=== PATIENT | male | born 1935 | race Caucasian/White ===

== ENCOUNTER 2017-12-14 19:48 | Emergency (ER) | payer MEDICARE ==
[~2017-12-14] VITALS: Ht 185.4 cm; Wt 101.0 kg
[2017-12-14] MEDS ORDERED: normal saline 1000ML IV soln IVB ONE (20:20)
[2017-12-14] MEDS ORDERED: ondansetron/PF 4mg/2ml inj IV ONE (20:20)
[2017-12-14 20:50] LABS: BASOPHILS # (AUTO) 0.1 X10'3 (0-0.2); BASOPHILS % (AUTO) 0.8 % (0-1); EOSINOPHILS # (AUTO) 0.2 X10'3 (0-0.9); EOSINOPHILS % (AUTO) 2.4 % (0-6); HEMATOCRIT 35.6 % (35.0-45.0); HEMOGLOBIN 12.2 g/dl (12.0-16.0); LYMPHOCYTES # (AUTO) 0.6 X10'3 (1.1-4.8); LYMPHOCYTES % (AUTO) 5.7 % (21-51); MEAN CORPUSCULAR HEMOGLOBIN 31.8 PG (27.0-31.0); MEAN CORPUSCULAR HGB CONC 34.3 % (33.0-36.5); MEAN CORPUSCULAR VOLUME 92.6 FL (78-98); MONOCYTES # (AUTO) 0.4 X10'3 (0-0.9); MONOCYTES % (AUTO) 4.5 % (2-12); NEUTROPHILS # (AUTO) 8.6 X10'3 (1.8-7.7); NEUTROPHILS % (AUTO) 86.6 % (42-75); PLATELET COUNT 122 X10'3 (140-440); RED BLOOD COUNT 3.84 X10'6 (4.20-5.60); RED CELL DISTRIBUTION WIDTH 13.4 % (11.5-14.5); WHITE BLOOD COUNT 9.9 X10'3 (4.5-11.0)
[2017-12-14] MEDS ORDERED: ondansetron 4mg rapidly disintigrating tab PO ONE (20:50)
[2017-12-14 21:03] LABS: ALANINE AMINOTRANSFERASE 75 U/L (12-78); ALBUMIN 3.4 G/DL (3.4-5.0); ALBUMIN/GLOBULIN RATIO 1.1 (1.1-1.5); ALKALINE PHOSPHATASE 112 IU/L (46-116); ANION GAP 8 (8-16); ASPARTATE AMINO TRANSFERASE 39 U/L (10-37); BILIRUBIN,TOTAL 2.6 MG/DL (0.1-1.0); BLOOD UREA NITROGEN 24 MG/DL (7-18); CALCIUM 8.2 MG/DL (8.5-10.1); CHLORIDE 96 MMOL/L (99-107); GLUCOSE 123 MG/DL (70-104); POTASSIUM 3.5 MMOL/L (3.5-5.1); SODIUM 129 MMOL/L (135-145); TOTAL CARBON DIOXIDE 25.2 MMOL/L (24-32); TOTAL PROTEIN 6.4 G/DL (6.4-8.2); eGFR 33 ML/MIN
[2017-12-14] MEDS ORDERED: levoFLOXACIN 250mg tablet PO ONE (21:15)
[2017-12-14] MEDS ORDERED: oseltamivir phos 75mg capsule PO ONE (21:15)
[2017-12-14] MEDS ORDERED: DOXY100C43 PO (21:15)
[2017-12-14] MEDS ORDERED: TAM75C PO (21:15)
[2017-12-14 21:45] LABS: TOTAL CELLS COUNTED 100
[2017-12-14 21:46] LABS: PLATELET ESTIMATE DECREASED
[2017-12-14 21:47] LABS: TOXIC VACUOLATION 1+
[2017-12-14] MEDS ORDERED: CefTRIAXone 2gm/D5W 50ml 50 ML IV ONE (22:05)
[2017-12-14] MEDS ORDERED: azithromycin/NS 500mg/250ml 250 ML IV ONE (22:10)
[2017-12-15] MEDS ORDERED: ondansetron 4mg rapidly disintigrating tab PO ONE (00:25)
[2017-12-15] MEDS ORDERED: ONDA4TAB9 PO (01:24)
[2017-12-15 01:28] VITALS: BP 94/58
[2017-12-16] MEDS ORDERED: SYN0.088T PO (12:03)
== END 2017-12-15 01:35 | disposition home or self-care (01) ==
LOC: EDSEX 19:49 → ER 19:49
DX: J18.9 Pneumonia, unspecified organism (principal); E86.0 Dehydration; N28.9 Disorder of kidney and ureter, unspecified; E03.9 Hypothyroidism, unspecified; Z79.899 Other long term (current) drug therapy
CPT/HCPCS: 36415; 71046; 80053; 83605; 84145; 85025; 87040; 87502; 87503; 96361; 96365; 96367; 99285; J0456; J0696; J7030

== ENCOUNTER 2017-12-16 10:16 | Inpatient (IN) | payer MEDICARE ==
[~2017-12-16] VITALS: Ht 185.4 cm; Wt 109.0 kg
[~2017-12-16 10:16] MED LIST: DOXY100C43 PO; ONDA4TAB9 PO; TAM75C PO
[2017-12-16] MEDS ORDERED: dexamethasone sod phosphate 10mg/ml inj IV STA (10:43)
[2017-12-16] MEDS ORDERED: azithromycin 250mg tablet PO ONE (10:45)
[2017-12-16] MEDS ORDERED: CefTRIAXone 2gm/D5W 50ml 50 ML IV ONE (10:45)
[2017-12-16] MEDS ORDERED: ipratropium/albuterol 3ml nebule NEB ONE (10:45)
[2017-12-16 10:56] LABS: INR 1.1 INR; PARTIAL THROMBOPLASTIN TIME 29 SECONDS (22-32); PROTHROMBIN TIME 11.5 SECONDS (9.0-12.0)
[2017-12-16 11:07] LABS: ALANINE AMINOTRANSFERASE 49 U/L (12-78); ALBUMIN 2.9 G/DL (3.4-5.0); ALBUMIN/GLOBULIN RATIO 0.8 (1.1-1.5); ALKALINE PHOSPHATASE 95 IU/L (46-116); ANION GAP 12 (8-16); ASPARTATE AMINO TRANSFERASE 20 U/L (10-37); BILIRUBIN,TOTAL 1.8 MG/DL (0.1-1.0); BLOOD UREA NITROGEN 28 MG/DL (7-18); BUN/CREATININE RATIO 17.2 (5.4-32.0); CALCIUM 8.2 MG/DL (8.5-10.1); CHLORIDE 94 MMOL/L (99-107); CREATININE 1.63 MG/DL (0.60-1.10); GLUCOSE 166 MG/DL (70-104); POTASSIUM 4.2 MMOL/L (3.5-5.1); SODIUM 128 MMOL/L (135-145); TOTAL CARBON DIOXIDE 22.4 MMOL/L (24-32); TOTAL PROTEIN 6.4 G/DL (6.4-8.2); eGFR 41 ML/MIN
[2017-12-16 11:09] LABS: BASOPHILS % (AUTO) 0.2 % (0-1); EOSINOPHILS # (AUTO) 0.2 X10'3 (0-0.9); EOSINOPHILS % (AUTO) 1.8 % (0-6); HEMATOCRIT 35.8 % (42.0-52.0); HEMOGLOBIN 12.3 g/dl (14.0-17.9); LYMPHOCYTES # (AUTO) 0.5 X10'3 (1.1-4.8); LYMPHOCYTES % (AUTO) 4.1 % (21-51); MEAN CORPUSCULAR HEMOGLOBIN 31.9 PG (27.0-31.0); MEAN CORPUSCULAR HGB CONC 34.5 % (33.0-36.5); MEAN CORPUSCULAR VOLUME 92.6 FL (78-98); MEAN PLATELET VOLUME 9.5 FL (7.4-10.4); MONOCYTES # (AUTO) 0.2 X10'3 (0-0.9); MONOCYTES % (AUTO) 1.9 % (2-12); NEUTROPHILS # (AUTO) 10.4 X10'3 (1.8-7.7); PLATELET COUNT 146 X10'3 (140-440); RED BLOOD COUNT 3.86 X10'6 (4.70-6.10); RED CELL DISTRIBUTION WIDTH 13.6 % (11.5-14.5); WHITE BLOOD COUNT 11.3 X10'3 (4.5-11.0)
[2017-12-16 12:00] LABS: ABG BASE EXCESS -1.7 mmol/L (-2.0-3.0); ABG HCO3 20.4 mmol/L (22.0-26.0); ABG OXYGEN SATURATION 93.2 % (95-98); ABG PCO2 (T) 27.2 mmHg (35.0-48.0); ABG PH (T) 7.493 (7.350-7.450); ABG PO2 (T) 62.7 mmHg (83-108); ALLEN'S TEST Positive; FCOHb 1.1 % (0.5-1.5); FMetHb 0.3 % (0.3-1.12); FO2Hb 91.9 % (94-100); TOTAL HEMOGLOBIN 12.4 G/dl (14.0-18.0)
[2017-12-16] MEDS ORDERED: SYN0.088T PO (12:03)
[2017-12-16] MEDS ORDERED: HYDROcodone/acetaminophen 5mg/325mg tablet PO PRN (12:20)
[2017-12-16] MEDS ORDERED: HYDROcodone/acetaminophen 10/325mg tab PO PRN (12:20)
[2017-12-16] MEDS ORDERED: mag hydrox/Alum hydrox/simeth 30ml oral suspension PO PRN (12:20)
[2017-12-16] MEDS ORDERED: ondansetron/PF 4mg/2ml inj IV PRN (12:20)
[2017-12-16] MEDS ORDERED: potassium Cl 40MEQ/NS 500ml 500 ML IV PRN ×2 (12:20)
[2017-12-16] MEDS ORDERED: potassium Cl 20 mEq SR tablet PO PRN ×2 (12:20)
[2017-12-16] MEDS ORDERED: morphine 4 MG/ML inj SYRINge IV PRN (12:20)
[2017-12-16] MEDS ORDERED: magnesium hydroxide 30ml (MOM) UD suspension PO PRN (12:20)
[2017-12-16] MEDS ORDERED: acetaminophen 325mg tablet PO PRN (12:20)
[2017-12-16] MEDS ORDERED: benzonatate 100mg capsule PO PRN (12:25)
[2017-12-16] MEDS ORDERED: methylPREDNISolone sod succ 125mg/2ml vial IV ONE (12:25)
[2017-12-16] MEDS: clindamycin 600mg/D5W 50ml 50 ML IV SCH ×2 (14:45→19:34)
[2017-12-16 14:58] VITALS: BP 105/56
[2017-12-16] MEDS: ipratropium 0.5 MG/2.5ML nebule IH PRN (17:49)
[2017-12-16 20:00] VITALS: BP 90/40
[2017-12-16 23:00] VITALS: BP 95/54
[2017-12-17] MEDS: temazepam 15mg capsule PO PRN ×2 (01:28→21:59)
[2017-12-17] MEDS: clindamycin 600mg/D5W 50ml 50 ML IV SCH ×4 (01:28→19:51)
[2017-12-17] MEDS: ipratropium 0.5 MG/2.5ML nebule IH PRN (01:33)
[2017-12-17 01:45] VITALS: BP 104/53
[2017-12-17 06:03] LABS: BASOPHILS % (AUTO) 0.2 % (0-1); EOSINOPHILS # (AUTO) 0.1 X10'3 (0-0.9); EOSINOPHILS % (AUTO) 0.9 % (0-6); HEMATOCRIT 34.7 % (42.0-52.0); HEMOGLOBIN 11.9 g/dl (14.0-17.9); LYMPHOCYTES # (AUTO) 0.5 X10'3 (1.1-4.8); LYMPHOCYTES % (AUTO) 7.1 % (21-51); MEAN CORPUSCULAR HGB CONC 34.3 % (33.0-36.5); MEAN CORPUSCULAR VOLUME 93.3 FL (78-98); MEAN PLATELET VOLUME 9.3 FL (7.4-10.4); MONOCYTES # (AUTO) 0.2 X10'3 (0-0.9); MONOCYTES % (AUTO) 3.6 % (2-12); NEUTROPHILS # (AUTO) 6.1 X10'3 (1.8-7.7); NEUTROPHILS % (AUTO) 88.2 % (42-75); PLATELET COUNT 143 X10'3 (140-440); RED BLOOD COUNT 3.72 X10'6 (4.70-6.10); RED CELL DISTRIBUTION WIDTH 13.5 % (11.5-14.5); WHITE BLOOD COUNT 6.9 X10'3 (4.5-11.0)
[2017-12-17 06:14] LABS: GLUCOSE 261 MG/DL (70-104); POTASSIUM 4.4 MMOL/L (3.5-5.1); SODIUM 134 MMOL/L (135-145)
[2017-12-17 06:15] LABS: ALBUMIN 2.6 G/DL (3.4-5.0); ANION GAP 9 (8-16); BLOOD UREA NITROGEN 35 MG/DL (7-18); BUN/CREATININE RATIO 25.9 (5.4-32.0); CALCIUM 8.7 MG/DL (8.5-10.1); CHLORIDE 101 MMOL/L (99-107); CREATININE 1.35 MG/DL (0.60-1.10); MAGNESIUM 2.4 MG/DL (1.5-2.4); TOTAL CARBON DIOXIDE 24.1 MMOL/L (24-32); eGFR 51 ML/MIN
[2017-12-17 06:59] VITALS: BP 112/63
[2017-12-17] MEDS: levoTHYROXINE 125mcg tablet PO SCH (07:23)
[2017-12-17] MEDS: K and/or MAG REPLACEMENT MC SCH (08:00)
[2017-12-17] MEDS: levoFLOXACIN-Levaquin 750MG/D5 150 ML IV SCH (08:15)
[2017-12-17] MEDS ORDERED: ZOLP5TAB8 PO (08:35)
[2017-12-17] MEDS: apixaban 5mg tablet PO SCH (19:50)
[2017-12-17 20:00] VITALS: BP 121/68
[2017-12-17 23:00] VITALS: BP 99/49
[2017-12-18] MEDS: clindamycin 600mg/D5W 50ml 50 ML IV SCH ×4 (01:30→20:53)
[2017-12-18 06:02] LABS: BASOPHILS % (AUTO) 0.3 % (0-1); EOSINOPHILS # (AUTO) 0.2 X10'3 (0-0.9); EOSINOPHILS % (AUTO) 1.5 % (0-6); HEMATOCRIT 36.2 % (42.0-52.0); HEMOGLOBIN 12.3 g/dl (14.0-17.9); LYMPHOCYTES # (AUTO) 0.9 X10'3 (1.1-4.8); LYMPHOCYTES % (AUTO) 7.8 % (21-51); MEAN CORPUSCULAR HEMOGLOBIN 31.5 PG (27.0-31.0); MEAN CORPUSCULAR HGB CONC 33.9 % (33.0-36.5); MEAN PLATELET VOLUME 8.9 FL (7.4-10.4); MONOCYTES # (AUTO) 0.7 X10'3 (0-0.9); MONOCYTES % (AUTO) 6.4 % (2-12); NEUTROPHILS # (AUTO) 9.5 X10'3 (1.8-7.7); PLATELET COUNT 188 X10'3 (140-440); RED BLOOD COUNT 3.89 X10'6 (4.70-6.10); RED CELL DISTRIBUTION WIDTH 13.5 % (11.5-14.5); WHITE BLOOD COUNT 11.4 X10'3 (4.5-11.0)
[2017-12-18 06:31] LABS: ALBUMIN 2.5 G/DL (3.4-5.0); ANION GAP 7 (8-16); BLOOD UREA NITROGEN 33 MG/DL (7-18); BUN/CREATININE RATIO 29.7 (5.4-32.0); CALCIUM 8.4 MG/DL (8.5-10.1); CHLORIDE 106 MMOL/L (99-107); CREATININE 1.11 MG/DL (0.60-1.10); GLUCOSE 112 MG/DL (70-104); MAGNESIUM 2.2 MG/DL (1.5-2.4); POTASSIUM 4.2 MMOL/L (3.5-5.1); SODIUM 138 MMOL/L (135-145); eGFR 64 ML/MIN
[2017-12-18] MEDS: K and/or MAG REPLACEMENT MC SCH (07:23)
[2017-12-18 08:00] VITALS: BP 109/62
[2017-12-18] MEDS: levoTHYROXINE 125mcg tablet PO SCH (08:42)
[2017-12-18] MEDS: apixaban 5mg tablet PO SCH ×2 (08:42→20:53)
[2017-12-18] MEDS: levoFLOXACIN-Levaquin 750MG/D5 150 ML IV SCH (08:49)
[2017-12-18] MEDS: ipratropium 0.5 MG/2.5ML nebule IH PRN (10:35)
[2017-12-18] MEDS ORDERED: benzocaine/menthol oral lozeng 1 EACH BOX MM PRN (11:55)
[2017-12-18] MEDS ORDERED: methylPREDNISolone sod succ 125mg/2ml vial IV ONE (11:55)
[2017-12-18 12:00] VITALS: BP 103/59
[2017-12-18 18:00] VITALS: BP 100/50
[2017-12-18] MEDS: magnesium hydroxide 30ml (MOM) UD suspension PO ONE (18:40)
[2017-12-18] MEDS: docusate sod 100mg capsule PO SCH (20:52)
[2017-12-18] MEDS: lactobacillus rhamnosus 10,000 MMU CELLS/CAPSULE PO SCH (20:53)
[2017-12-18 23:00] VITALS: BP 112/53
[2017-12-19] MEDS: clindamycin 600mg/D5W 50ml 50 ML IV SCH ×2 (02:56→08:02)
[2017-12-19 05:22] LABS: ALBUMIN 2.5 G/DL (3.4-5.0); ANION GAP 8 (8-16); BLOOD UREA NITROGEN 27 MG/DL (7-18); BUN/CREATININE RATIO 23.9 (5.4-32.0); CALCIUM 8.5 MG/DL (8.5-10.1); CHLORIDE 103 MMOL/L (99-107); CREATININE 1.13 MG/DL (0.60-1.10); GLUCOSE 158 MG/DL (70-104); MAGNESIUM 2.2 MG/DL (1.5-2.4); POTASSIUM 4.1 MMOL/L (3.5-5.1); SODIUM 137 MMOL/L (135-145); TOTAL CARBON DIOXIDE 25.9 MMOL/L (24-32); eGFR 62 ML/MIN
[2017-12-19 05:41] LABS: BASOPHILS # (AUTO) 0.1 X10'3 (0-0.2); BASOPHILS % (AUTO) 0.9 % (0-1); EOSINOPHILS # (AUTO) 0.1 X10'3 (0-0.9); EOSINOPHILS % (AUTO) 1.4 % (0-6); HEMATOCRIT 35.1 % (42.0-52.0); HEMOGLOBIN 11.9 g/dl (14.0-17.9); LYMPHOCYTES # (AUTO) 1.2 X10'3 (1.1-4.8); LYMPHOCYTES % (AUTO) 11.5 % (21-51); MEAN CORPUSCULAR HEMOGLOBIN 31.2 PG (27.0-31.0); MEAN CORPUSCULAR HGB CONC 33.7 % (33.0-36.5); MEAN CORPUSCULAR VOLUME 92.3 FL (78-98); MEAN PLATELET VOLUME 8.7 FL (7.4-10.4); MONOCYTES # (AUTO) 0.6 X10'3 (0-0.9); MONOCYTES % (AUTO) 5.7 % (2-12); NEUTROPHILS # (AUTO) 8.3 X10'3 (1.8-7.7); NEUTROPHILS % (AUTO) 80.5 % (42-75); PLATELET COUNT 224 X10'3 (140-440); RED BLOOD COUNT 3.81 X10'6 (4.70-6.10); RED CELL DISTRIBUTION WIDTH 13.9 % (11.5-14.5); WHITE BLOOD COUNT 10.3 X10'3 (4.5-11.0)
[2017-12-19 07:55] VITALS: BP 110/56
[2017-12-19] MEDS: K and/or MAG REPLACEMENT MC SCH (08:00)
[2017-12-19] MEDS: lactobacillus rhamnosus 10,000 MMU CELLS/CAPSULE PO SCH (08:02)
[2017-12-19] MEDS: levoTHYROXINE 125mcg tablet PO SCH (08:02)
[2017-12-19] MEDS: apixaban 5mg tablet PO SCH (08:02)
[2017-12-19] MEDS: docusate sod 100mg capsule PO SCH (08:02)
[2017-12-19] MEDS: magnesium hydroxide 30ml (MOM) UD suspension PO ONE (08:04)
[2017-12-19] MEDS: levoFLOXACIN-Levaquin 750MG/D5 150 ML IV SCH (09:11)
[2017-12-19 11:00] VITALS: BP 100/51
[2017-12-19] MEDS ORDERED: LACT1CAP26 PO (11:29)
[2017-12-19] MEDS ORDERED: BENZ-16 PO (11:29)
[2017-12-19] MEDS ORDERED: LEVO750T46 PO (11:29)
[2017-12-19] MEDS ORDERED: APIX5TAB3 PO (11:29)
[2017-12-19] MEDS ORDERED: CLIN-5 PO (11:31)
== END 2017-12-19 14:35 | disposition home health service (06) | DRG 871 ==
LOC: ER 10:17 → ED HOLD 12:18 → EDBEDREQ 13:15 → MED 3N 14:29
PROVIDERS: ADMIT Family Medicine; ATTEND Family Medicine
DX: A41.9 Sepsis, unspecified organism (principal); J18.1 Lobar pneumonia, unspecified organism; E87.4 Mixed disorder of acid-base balance; N17.9 Acute kidney failure, unspecified; I48.91 Unspecified atrial fibrillation; I50.9 Heart failure, unspecified; D64.9 Anemia, unspecified; E87.1 Hypo-osmolality and hyponatremia; J98.11 Atelectasis; E03.9 Hypothyroidism, unspecified; F41.9 Anxiety disorder, unspecified; G47.30 Sleep apnea, unspecified; Z79.01 Long term (current) use of anticoagulants; Z85.820 Personal history of malignant melanoma of skin; Z85.048 Personal history of other malignant neoplasm of rectum, rectosigmoid junction, and anus
CPT/HCPCS: 36415; 36600; 71045; 71250; 74176; 80048; 80053; 82533; 82803; 83605; 83735; 83880; 83930; 84145; 84443; 84484; 85018; 85025; 85610; 85730; 87040; 87070; 87502; 87503; 93005; 93306; 94640; 94760; A6258; J0696; J1100; J1956; J2930; J3490

== ENCOUNTER 2017-12-28 11:50 | Emergency (ER) | payer MEDICARE ==
[~2017-12-28] VITALS: Ht 185.4 cm; Wt 92.7 kg
[~2017-12-28 11:50] MED LIST changes: +APIX5TAB3 PO; +BENZ-16 PO; +CLIN-5 PO; -DOXY100C43 PO; +LACT1CAP26 PO; +LEVO750T46 PO; -ONDA4TAB9 PO; +SYN0.088T PO; -TAM75C PO; +ZOLP5TAB8 PO
[2017-12-28 13:14] LABS: BASOPHILS # (AUTO) 0.1 X10'3 (0-0.2); BASOPHILS % (AUTO) 1.2 % (0-1); EOSINOPHILS # (AUTO) 0.3 X10'3 (0-0.9); EOSINOPHILS % (AUTO) 3.4 % (0-6); HEMATOCRIT 36.8 % (42.0-52.0); HEMOGLOBIN 12.4 g/dl (14.0-17.9); LYMPHOCYTES # (AUTO) 1.4 X10'3 (1.1-4.8); LYMPHOCYTES % (AUTO) 14.4 % (21-51); MEAN CORPUSCULAR HEMOGLOBIN 31.2 PG (27.0-31.0); MEAN CORPUSCULAR HGB CONC 33.8 % (33.0-36.5); MEAN CORPUSCULAR VOLUME 92.3 FL (78-98); MEAN PLATELET VOLUME 6.9 FL (7.4-10.4); MONOCYTES % (AUTO) 10.1 % (2-12); NEUTROPHILS # (AUTO) 7.1 X10'3 (1.8-7.7); NEUTROPHILS % (AUTO) 70.9 % (42-75); PLATELET COUNT 363 X10'3 (140-440); RED BLOOD COUNT 3.98 X10'6 (4.70-6.10); RED CELL DISTRIBUTION WIDTH 13.6 % (11.5-14.5); WHITE BLOOD COUNT 9.9 X10'3 (4.5-11.0)
[2017-12-28 13:27] LABS: ALANINE AMINOTRANSFERASE 27 U/L (12-78); ALBUMIN 2.7 G/DL (3.4-5.0); ALBUMIN/GLOBULIN RATIO 0.5 (1.1-1.5); ALKALINE PHOSPHATASE 63 IU/L (46-116); ANION GAP 10 (8-16); ASPARTATE AMINO TRANSFERASE 14 U/L (10-37); BILIRUBIN,TOTAL 0.4 MG/DL (0.1-1.0); BLOOD UREA NITROGEN 21 MG/DL (7-18); BUN/CREATININE RATIO 18.1 (5.4-32.0); CALCIUM 8.5 MG/DL (8.5-10.1); CHLORIDE 100 MMOL/L (99-107); CREATININE 1.16 MG/DL (0.60-1.10); GLUCOSE 103 MG/DL (70-104); POTASSIUM 4.4 MMOL/L (3.5-5.1); SODIUM 132 MMOL/L (135-145); TOTAL CARBON DIOXIDE 21.9 MMOL/L (24-32); TOTAL PROTEIN 7.7 G/DL (6.4-8.2); eGFR 60 ML/MIN
[2017-12-28 13:35] LABS: MAGNESIUM 2.3 MG/DL (1.5-2.4)
[2017-12-28] MEDS ORDERED: FURO-150 PO (13:49)
[2017-12-28] MEDS ORDERED: POTA20TA19 PO (13:49)
[2017-12-28] MEDS ORDERED: CEPH500C5 PO (13:54)
[2017-12-28 13:59] VITALS: BP 122/64
== END 2017-12-28 14:00 | disposition home or self-care (01) ==
LOC: ER 11:51
DX: R60.0 Localized edema (principal); I48.91 Unspecified atrial fibrillation; I50.9 Heart failure, unspecified; E03.9 Hypothyroidism, unspecified; Z79.899 Other long term (current) drug therapy
CPT/HCPCS: 36415; 71045; 80053; 83735; 83880; 85025; 85379; 99285; A6449